=== PATIENT | female | born 1935 | race Caucasian/White ===

== ENCOUNTER 2019-03-09 11:15 | Inpatient (IN) | payer MEDICARE, BC ==
[2019-03-09] MEDS ORDERED: Albuterol 8 GM Inhaler INH PRN (14:52)
[2019-03-09] MEDS ORDERED: Nitroglycerin 0.4 MG Tab.SL SL PRN (14:52)
[2019-03-09] MEDS: ALPRAZolam 0.25 MG Tab PO PRN (15:16)
[2019-03-09] MEDS: Warfarin 5 MG Tab PO SCH (17:42)
[2019-03-09] MEDS: Carvedilol 3.125 MG Tab PO SCH (17:44)
[2019-03-09] MEDS: atorvaSTATin 40 MG Tab PO SCH (21:20)
[2019-03-09] MEDS: Gabapentin 100 MG Cap PO SCH (21:29)
[2019-03-10] MEDS: Carvedilol 3.125 MG Tab PO SCH ×2 (08:29→17:05)
[2019-03-10] MEDS: TRELEGY ELLIPTA IH SCH (08:30)
[2019-03-10] MEDS: Clopidogrel 75 MG Tab PO SCH (08:32)
[2019-03-10] MEDS: Lisinopril 2.5 MG Tab PO SCH (08:32)
[2019-03-10] MEDS ORDERED: Escitalopram 10 MG Tab PO SCH (09:00)
[2019-03-10] MEDS ORDERED: Bumetanide 1 MG Tab PO SCH (09:00)
[2019-03-10] MEDS ORDERED: Bumetanide 1 MG Tab PO ONE (09:45)
[2019-03-10] MEDS ORDERED: Ondansetron 4 MG Tab.DIS PO PRN (10:34)
[2019-03-10] MEDS ORDERED: Warfarin Sliding Scale PO SCH ×2 (16:00)
[2019-03-10] MEDS: Warfarin 2.5 MG Tab PO SCH (17:03)
[2019-03-10] MEDS: Gabapentin 100 MG Cap PO SCH (20:09)
[2019-03-10] MEDS: atorvaSTATin 40 MG Tab PO SCH (20:10)
[2019-03-11] MEDS: Carvedilol 3.125 MG Tab PO SCH ×2 (08:02→17:09)
[2019-03-11] MEDS: TRELEGY ELLIPTA IH SCH (08:02)
[2019-03-11] MEDS: Lisinopril 2.5 MG Tab PO SCH (08:03)
[2019-03-11] MEDS: Clopidogrel 75 MG Tab PO SCH (08:03)
[2019-03-11] MEDS ORDERED: Escitalopram 10 MG Tab PO SCH (09:00)
[2019-03-11] MEDS ORDERED: Bumetanide 1 MG Tab PO SCH (09:00)
[2019-03-11] MEDS: Warfarin 2.5 MG Tab PO SCH (17:09)
[2019-03-11] MEDS: Acetaminophen/HYDROcodone 325-5 MG Tab PO PRN (17:14)
[2019-03-11] MEDS: atorvaSTATin 40 MG Tab PO SCH (20:04)
[2019-03-11] MEDS: Gabapentin 100 MG Cap PO SCH (20:05)
[2019-03-12] MEDS: Carvedilol 3.125 MG Tab PO SCH ×2 (08:26→17:55)
[2019-03-12] MEDS: TRELEGY ELLIPTA IH SCH (08:28)
[2019-03-12] MEDS: Clopidogrel 75 MG Tab PO SCH (08:29)
[2019-03-12] MEDS: Lisinopril 2.5 MG Tab PO SCH (08:29)
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
[2019-03-12] MEDS ORDERED: Escitalopram 20 MG Tab PO SCH (09:00)
[2019-03-12] MEDS: Bumetanide 2 MG Tab PO SCH (10:09)
[2019-03-12] MEDS ORDERED: Loperamide 2 MG Cap PO PRN (10:31)
--- NOTE | 2019-03-12 11:43 | CR ---
INDICATION: Cough. CHEST, TWO VIEWS: PA and lateral views of the chest 03/11/2019 were compared with 05/07/2014 and 09/29/2011. The heart appeared mildly enlarged with a TVAR type aortic valve replacement. The aorta is tortuous with calcification. The heart is at the upper limits of normal in size or slightly enlarged. Evidence of previous median sternotomy is noted. Diminished bone density is noted compatible with osteoporosis with multiple osteoporotic compression fractures and 3 vertebroplasties now seen. Multiple new compression fractures are noted compared with 2014 in the mid thoracic spine. The only previously present was at the upper thoracic spine, which appears stable post vertebroplasty. Findings were also compatible with COPD and dextroconcave rotoscoliosis of the lower middle thoracic spine extending into the thoracolumbar spine area. A definite active infiltrate or effusion was not identified. Bronchial wall cuffing, however, is noted at the lung bases more prominently on the right raising question of active peribronchial disease. IMPRESSION: 1. Bronchial wall cuffing noted at the lung bases with no consolidating pneumonia or effusion - correlate clinically. 2. COPD. 3. ASHD. 4. Osteoporosis, scoliosis, multiple compression fractures, progressive compared with 2015 with vertebroplasties. MTDD
[2019-03-12] MEDS: Ondansetron 4 MG Tab.DIS PO PRN (12:23)
[2019-03-12] MEDS: Warfarin 2.5 MG Tab PO SCH (16:50)
[2019-03-12] MEDS: atorvaSTATin 40 MG Tab PO SCH (20:58)
[2019-03-12] MEDS: Gabapentin 100 MG Cap PO SCH (21:05)
[2019-03-13] MEDS: Escitalopram 20 MG Tab PO SCH (07:42)
[2019-03-13] MEDS: Carvedilol 3.125 MG Tab PO SCH ×2 (07:46→18:45)
[2019-03-13] MEDS: Bumetanide 2 MG Tab PO SCH (08:47)
[2019-03-13] MEDS: TRELEGY ELLIPTA IH SCH (08:48)
[2019-03-13] MEDS: Lisinopril 2.5 MG Tab PO SCH (08:48)
[2019-03-13] MEDS: Clopidogrel 75 MG Tab PO SCH (08:48)
[2019-03-13] MEDS: Warfarin 2.5 MG Tab PO SCH (16:55)
[2019-03-13] MEDS: Acetaminophen/HYDROcodone 325-5 MG Tab PO PRN (18:45)
[2019-03-13] MEDS: atorvaSTATin 40 MG Tab PO SCH (20:54)
[2019-03-13] MEDS: Gabapentin 100 MG Cap PO SCH (20:54)
[2019-03-14] MEDS: Escitalopram 20 MG Tab PO SCH (07:58)
[2019-03-14] MEDS: Carvedilol 3.125 MG Tab PO SCH ×2 (07:58→18:52)
[2019-03-14] MEDS: Bumetanide 2 MG Tab PO SCH (08:10)
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
[2019-03-14] MEDS: TRELEGY ELLIPTA IH SCH (08:11)
[2019-03-14] MEDS: Clopidogrel 75 MG Tab PO SCH (08:12)
[2019-03-14] MEDS: Lisinopril 2.5 MG Tab PO SCH (08:12)
[2019-03-14] MEDS ORDERED: Acetaminophen 325 MG Tab PO PRN (08:53)
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
[2019-03-14] MEDS: Ondansetron 4 MG Tab.DIS PO PRN (15:08)
[2019-03-14] MEDS: Warfarin 2.5 MG Tab PO SCH (15:43)
[2019-03-14] MEDS: Aloe Vera/Sodium Chloride Gel 14.1 GM Tube NAS PRN (15:44)
[2019-03-14] MEDS: atorvaSTATin 40 MG Tab PO SCH (20:36)
[2019-03-14] MEDS: Gabapentin 100 MG Cap PO SCH (20:38)
[2019-03-15] MEDS: Escitalopram 20 MG Tab PO SCH (06:54)
[2019-03-15] MEDS: Carvedilol 3.125 MG Tab PO SCH ×2 (08:01→18:06)
[2019-03-15] MEDS: TRELEGY ELLIPTA IH SCH (08:02)
[2019-03-15] MEDS: Bumetanide 2 MG Tab PO SCH (08:02)
[2019-03-15] MEDS: Clopidogrel 75 MG Tab PO SCH (08:03)
[2019-03-15] MEDS: Lisinopril 2.5 MG Tab PO SCH (08:03)
[2019-03-15] MEDS: Warfarin 2.5 MG Tab PO SCH (16:23)
[2019-03-15] MEDS: Gabapentin 100 MG Cap PO SCH (20:40)
[2019-03-15] MEDS: atorvaSTATin 40 MG Tab PO SCH (20:40)
[2019-03-15] MEDS: ALPRAZolam 0.25 MG Tab PO PRN (21:38)
[2019-03-16] MEDS: TRELEGY ELLIPTA IH SCH ×2 (07:19→08:53)
[2019-03-16] MEDS: Escitalopram 20 MG Tab PO SCH (07:20)
[2019-03-16] MEDS: Carvedilol 3.125 MG Tab PO SCH ×2 (07:26→18:11)
[2019-03-16] MEDS: Clopidogrel 75 MG Tab PO SCH (08:15)
[2019-03-16] MEDS: Lisinopril 2.5 MG Tab PO SCH (08:15)
[2019-03-16] MEDS: Bumetanide 2 MG Tab PO SCH (08:15)
[2019-03-16] MEDS: Warfarin 5 MG Tab PO SCH (15:58)
[2019-03-16] MEDS: ALPRAZolam 0.25 MG Tab PO PRN (17:51)
[2019-03-16] MEDS: Gabapentin 100 MG Cap PO SCH (20:00)
[2019-03-16] MEDS: atorvaSTATin 40 MG Tab PO SCH (20:00)
[2019-03-17] MEDS: Escitalopram 20 MG Tab PO SCH (06:38)
[2019-03-17] MEDS: Carvedilol 3.125 MG Tab PO SCH ×2 (08:23→18:06)
[2019-03-17] MEDS: Lisinopril 2.5 MG Tab PO SCH (08:23)
[2019-03-17] MEDS: TRELEGY ELLIPTA IH SCH (08:24)
[2019-03-17] MEDS: Clopidogrel 75 MG Tab PO SCH (08:24)
[2019-03-17] MEDS: Bumetanide 2 MG Tab PO SCH (08:24)
[2019-03-17] MEDS: ALPRAZolam 0.25 MG Tab PO PRN (15:42)
[2019-03-17] MEDS: Warfarin 2.5 MG Tab PO SCH (15:42)
[2019-03-17] MEDS: atorvaSTATin 40 MG Tab PO SCH (20:42)
[2019-03-17] MEDS: Gabapentin 100 MG Cap PO SCH (20:42)
[2019-03-18] MEDS: Escitalopram 20 MG Tab PO SCH (07:29)
[2019-03-18] MEDS: Carvedilol 3.125 MG Tab PO SCH ×2 (07:40→17:53)
[2019-03-18] MEDS: TRELEGY ELLIPTA IH SCH (08:44)
[2019-03-18] MEDS: Clopidogrel 75 MG Tab PO SCH (08:44)
[2019-03-18] MEDS: Bumetanide 2 MG Tab PO SCH (08:44)
[2019-03-18] MEDS: Lisinopril 2.5 MG Tab PO SCH (08:44)
[2019-03-18] MEDS: Ondansetron 4 MG Tab.DIS PO PRN (11:57)
[2019-03-18] MEDS: Warfarin 2.5 MG Tab PO SCH (15:55)
[2019-03-18] MEDS: Aloe Vera/Sodium Chloride Gel 14.1 GM Tube NAS PRN (16:33)
[2019-03-18] MEDS: atorvaSTATin 40 MG Tab PO SCH (19:59)
[2019-03-18] MEDS: Gabapentin 100 MG Cap PO SCH (19:59)
[2019-03-19] MEDS: ALPRAZolam 0.25 MG Tab PO PRN (02:58)
[2019-03-19] MEDS: Escitalopram 20 MG Tab PO SCH (06:31)
[2019-03-19] MEDS: Carvedilol 3.125 MG Tab PO SCH (08:54)
[2019-03-19] MEDS: Bumetanide 2 MG Tab PO SCH (08:55)
[2019-03-19] MEDS: TRELEGY ELLIPTA IH SCH (08:55)
[2019-03-19] MEDS: Lisinopril 2.5 MG Tab PO SCH (08:56)
[2019-03-19] MEDS: Clopidogrel 75 MG Tab PO SCH (08:56)
[2019-03-19 08:57] VITALS: BP 152/58; PULSE 79
[2019-03-19] MEDS ORDERED: Sodium Chloride 0.9% 1,000 ML IV SCH (09:30)
[2019-03-19] MEDS ORDERED: ALPRAZolam 0.25 MG Tab PO PRN (11:00)
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
== END 2019-03-19 10:05 | disposition home health service (06) | DRG 949 ==
LOC: FB.MS 13:49
PROVIDERS: ADMIT Family Medicine; ATTEND Family Medicine
DX: T81.31XD Disruption of external operation (surgical) wound, not elsewhere classified, subsequent encounter (principal); D68.59 Other primary thrombophilia; I74.9 Embolism and thrombosis of unspecified artery; S31.103D Unspecified open wound of abdominal wall, right lower quadrant without penetration into peritoneal cavity, subsequent encounter; B96.1 Klebsiella pneumoniae [K. pneumoniae] as the cause of diseases classified elsewhere; B96.89 Other specified bacterial agents as the cause of diseases classified elsewhere; J44.9 Chronic obstructive pulmonary disease, unspecified; I10 Essential (primary) hypertension; I25.10 Atherosclerotic heart disease of native coronary artery without angina pectoris; F41.9 Anxiety disorder, unspecified; E78.5 Hyperlipidemia, unspecified; M54.5 Low back pain; Z96.649 Presence of unspecified artificial hip joint; M17.0 Bilateral primary osteoarthritis of knee; M81.0 Age-related osteoporosis without current pathological fracture; I73.9 Peripheral vascular disease, unspecified; I35.0 Nonrheumatic aortic (valve) stenosis; I27.20 Pulmonary hypertension, unspecified; Z79.899 Other long term (current) drug therapy; Z91.048 Other nonmedicinal substance allergy status; Z99.81 Dependence on supplemental oxygen; Z79.01 Long term (current) use of anticoagulants; I25.2 Old myocardial infarction; Z95.1 Presence of aortocoronary bypass graft; Z95.2 Presence of prosthetic heart valve; Z87.891 Personal history of nicotine dependence; Z85.038 Personal history of other malignant neoplasm of large intestine; Z85.3 Personal history of malignant neoplasm of breast; Z88.8 Allergy status to other drugs, medicaments and biological substances; Z88.5 Allergy status to narcotic agent; Z88.2 Allergy status to sulfonamides; Z88.1 Allergy status to other antibiotic agents; Z88.6 Allergy status to analgesic agent; Z86.711 Personal history of pulmonary embolism
CPT/HCPCS: 36415; 71046; 80053; 82607; 85025; 85610; 87070; 87077; 87186; 87205; 94760; 97110-GO; 97116-GP; 97161-GP; 97165-GO; 97530-GO; 97535-GO; A9270-GY